=== PATIENT | female | born 2000 | race Caucasian/White ===

== ENCOUNTER 2023-06-26 20:07 | Emergency (ER) | payer OTHER ==
[~2023-06-26] VITALS: Ht 165.1 cm; Wt 88.8 kg
[2023-06-26 20:07] VITALS: TEMP 98.6; O2SAT 96
[2023-06-26] MEDS: LIDOCAINE 1% MDV 20ML VIAL SC ONE (21:05)
[2023-06-26 21:10] VITALS: BP 124/82
== END 2023-06-26 21:53 | disposition home or self-care (01) ==
LOC: M ED 20:07
DX: S61.412A Laceration without foreign body of left hand, initial encounter (principal); Y92.019 Unspecified place in single-family (private) house as the place of occurrence of the external cause; Y93.9 Activity, unspecified; Y99.9 Unspecified external cause status; W26.8XXA Contact with other sharp object(s), not elsewhere classified, initial encounter; Z88.7 Allergy status to serum and vaccine